=== PATIENT | female | born 1995 | race Caucasian/White ===

== ENCOUNTER → 2016-10-23 | Outpatient (CLI) | payer OTHER | LOC: MOB LAB 13:27 | PROVIDERS: ATTEND Physician Assistant | DX: Z32.01 Encounter for pregnancy test, result positive (principal) | CPT/HCPCS: 36415; 84702 ==

== ENCOUNTER → 2016-11-20 | Outpatient (CLI) | payer OTHER ==
--- NOTE | 2016-11-20 15:25 | DI ---
US OB LESS THAN 14 WEEKS,11/20/2016 1:06 PM: Clinical History: Positive test. Previous Exam: May 23, 2014 from a prior . Findings: Multiple transabdominal grayscale and color Doppler sonographic images are obtained through the pelvi s demonstrating a single intrauterine gestation. Detected Doppler heart tones measure 163 beats per minute. The crown-rump length measures 17 mm corresponding with an estimated gestational age of 8 weeks 2 day s. The right ovary measures 3.4 x 2.5 x 2.3 cm and the left ovary measures 2.8 x 1.9 x 2.1 cm. There is preserved Doppler flow within the ovaries. There is no free fluid within the cul-de-sac. Impression: A single live intrauterine gestation with estimated gestational age of 8 weeks 2 days.
== END ==
LOC: US 13:01
PROVIDERS: ATTEND Physician Assistant
DX: Z36 Encounter for antenatal screening of mother (principal)
CPT/HCPCS: 76801

== ENCOUNTER → 2016-12-03 | Outpatient (CLI) | payer OTHER ==
[2016-12-03 15:40] LABS: BASOPHILS # (AUTO) 0.01 10*3/UL; BASOPHILS % (AUTO) 0.2 % (0-1); EOSINOPHILS # (AUTO) 0.02 10*3/UL; EOSINOPHILS % (AUTO) 0.3 % (0-8); HEMATOCRIT 36.8 % (37.0-47.0); HEMOGLOBIN 12.8 g/dL (12.0-16.0); LYMPHOCYTES # (AUTO) 1.65 10*3/uL; MEAN CORPUSCULAR HEMOGLOBIN 30.1 PG (27-31); MEAN CORPUSCULAR HGB CONC 34.8 g/dL (33-37); MEAN CORPUSCULAR VOLUME 86.6 FL (81-99); MEAN PLATELET VOLUME 10.4 FL (7.4-12.2); MONOCYTES # (AUTO) 0.46 10*3/UL (0.3-0.8); MONOCYTES % (AUTO) 7.6 % (5-15); NEUTROPHILS # (AUTO) 3.91 10*3/UL; NEUTROPHILS % (AUTO) 64.5 % (50-80); RED BLOOD COUNT 4.25 10^6/uL (4.20-5.40)
[2016-12-03 15:42] LABS: PLATELET MORPHOLOGY COMMENT NORMAL MORPHOLOGY (NORM); RBC MORPHOLOGY COMMENT NORMAL MORPHOLOGY (NORM); WBC MORPHOLOGY COMMENT NORMAL MORPHOLOGY (NORM)
[2016-12-03 15:51] LABS: AMPHETAMINE SCREEN NEGATIVE (NEG); CANNABINOID SCREEN,URINE NEGATIVE (NEG); COCAINE SCREEN NEGATIVE (NEG); METHADONE URINE SCREEN NEGATIVE (NEG); METHAMPHETAMINES SCREEN,URINE NEGATIVE (NEG); OPIATE SCREEN,URINE NEGATIVE (NEG); TRICYCLIC ANTIDEPRESSANT,URINE NEGATIVE (NEG); URINE SAMPLE TYPE VOIDED SPECIMEN; URINE SPECIFIC GRAVITY - MAN 1.027
[2016-12-03 16:19] LABS: HIV ANTIBODY NEGATIVE (N); HIV-1 P24 ANTIGEN NEGATIVE (N)
== END ==
LOC: MOB LAB 13:38
PROVIDERS: ATTEND Family Medicine
DX: Z36 Encounter for antenatal screening of mother (principal); Z87.898 Personal history of other specified conditions; Z3A.10 10 weeks gestation of pregnancy
CPT/HCPCS: 36415; 80081; 80305; 86900; 86901; 87088

== ENCOUNTER 2017-06-15 15:24 | Inpatient (IN) ==
[2017-06-15] MEDS ORDERED: LIDOCAINE W/ SODIUM BICARB 0.5 ML SYR SUBD PRN ×2 (15:52→20:02)
[2017-06-15] MEDS ORDERED: NORMAL SALINE 10 ML SYRINGE FLUSH IVP PRN (15:52)
[2017-06-15 16:23] VITALS: O2SAT 98
[2017-06-15 16:25] LABS: AMPHETAMINE SCREEN NEGATIVE (NEG); CANNABINOID SCREEN,URINE NEGATIVE (NEG); COCAINE SCREEN NEGATIVE (NEG); METHADONE URINE SCREEN NEGATIVE (NEG); METHAMPHETAMINES SCREEN,URINE NEGATIVE (NEG); OPIATE SCREEN,URINE NEGATIVE (NEG); TRICYCLIC ANTIDEPRESSANT,URINE NEGATIVE (NEG); URINE SAMPLE TYPE CLEAN CATCH URINE; URINE SPECIFIC GRAVITY - MAN 1.016
[2017-06-15] MEDS ORDERED: BUTORPHANOL TARTRATE 2 MG/1 ML VIAL IVP PRN (20:02)
[2017-06-15] MEDS ORDERED: CALCIUM CARBONATE 500 MG (TUMS) CHEWABLE TABLET PO PRN (20:02)
[2017-06-15] MEDS ORDERED: Nalbuphine Inj 20 MG/ML Ampule IVP PRN (20:02)
[2017-06-15] MEDS ORDERED: Phenylephrine Inj 50 MCG in Normal Saline Flush 0.5 ML IVP PRN (20:02)
[2017-06-15] MEDS ORDERED: Carboprost Inj 250 MCG/ML AMP IM PRN (20:02)
[2017-06-15] MEDS ORDERED: ePHEDrine Inj 5 MG in Normal Saline Flush 1 ML IVP PRN (20:02)
[2017-06-15] MEDS ORDERED: Famotidine Inj 20 MG in Normal Saline Flush 10 ML IVP PRN ×4 (20:02)
[2017-06-15] MEDS ORDERED: fentaNYL Inj 100 MCG/2 ML VIAL IV PRN (20:02)
[2017-06-15] MEDS ORDERED: LIDOCAINE HCL 2 % 10 ML JELLY URO-JECT TOPICAL PRN (20:02)
[2017-06-15] MEDS ORDERED: METHYLERGONOVINE MALEATE 0.2 MG/1 ML VIAL IM PRN (20:02)
[2017-06-15] MEDS ORDERED: MISOPROSTOL 200 MCG TABLET RECTAL PRN (20:02)
[2017-06-15] MEDS ORDERED: ONDANSETRON 4 MG/2 ML VIAL IVP PRN (20:02)
[2017-06-15] MEDS ORDERED: diphenhydrAMINE 50 MG/1 ML VIAL IVP PRN (20:02)
[2017-06-15] MEDS ORDERED: Naloxone Inj 0.01 MG in Normal Saline Flush 1 ML IVP PRN (20:02)
[2017-06-15] MEDS ORDERED: TERBUTALINE SULFATE 1 MG/1 ML SDV SUBCUT PRN (20:02)
[2017-06-15] MEDS ORDERED: Metoclopramide Inj 10 MG/2 ML VIAL IV PRN (20:02)
[2017-06-15] MEDS ORDERED: NALOXONE 0.4 MG/1 ML VIAL IVP PRN (20:02)
[2017-06-15] MEDS ORDERED: OXYTOCIN 10 UNIT/1 ML IM PRN (20:02)
[2017-06-15] MEDS ORDERED: CITRIC ACID/SODIUM CITRATE 30 ML CUP PO PRN (20:02)
[2017-06-15] MEDS ORDERED: Lidocaine 1% 10 MG/ML - 20 ML VIAL SUBCUT PRN (20:02)
[2017-06-15] MEDS ORDERED: CefOXitin Inj 2 GM in Sodium Chloride 0.9% 100 ML IV PRN (20:02)
[2017-06-15] MEDS ORDERED: Lactated Ringers-OB Dept 1,000 ML PRIMARY IV SCH (20:15)
[2017-06-15] MEDS ORDERED: Oxytocin 20 Units + LR 20 UNIT/1,000 ML BAG IV SCH (20:15)
[2017-06-15 20:22] LABS: Hematocrit [HCT] 33.9 % (37.0-47.0); Hemoglobin [HGB] 11.3 g/dL (12.0-16.0); MEAN CORPUSCULAR HEMOGLOBIN 30.4 PG (27-31); MEAN CORPUSCULAR HGB CONC 33.3 g/dL (33-37); MEAN CORPUSCULAR VOLUME 91.1 FL (81-99); MEAN PLATELET VOLUME 10.9 FL (7.4-12.2); RED BLOOD COUNT 3.72 10^6/uL (4.20-5.40)
[2017-06-15 21:12] VITALS: RESP 16
[2017-06-16 02:15] VITALS: BP 103/54
[2017-06-16 13:11] VITALS: TEMP 97.8
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
--- NOTE | 2017-06-16 20:36 | DI ---
LIMITED OBSTETRICAL ULTRASOUND, 06/16/2017 2:44 PM Clinical History: IUGR. Previous Exam: 06/10/2017. EDC based on early OB US: 06/30/2017. There is a single live IUP currently in vertex presentation. Amnionic fluid content is at the upper l imits of normal for this stage of . SCOTT is 14.7 cm. activity is observed as follows: c ardiac and extremity. The placenta is anterior corpus and Grade grade 2. heart rate varies betw een 124-164 beats/minute over a time span of 11 minutes and is regular. Cord Doppler ultrasound shows diastolic flow. Systolic/diastolic ratios are 2.7, 2.5, 3.0, 1.9, and 2.3. BPD, HC, AC, and FL measu rements are 89 mm, 325 mm, 312 mm, and 70 mm, respectively. These measurements correspond to EGA valu es of 31 weeks 1 day, 36 weeks 6 days, 35 weeks 1 day, and 36 weeks 0 days, respectively. Composite E GA is 36 weeks 1 day. The US EDC is 07/13/2017, and has not changed since the previous exam. EDC based on early OB US is 06/30/2017. AC measurement is in the 5th percentile, and the HC and FL measurements are in the 9th percentile, and the BPD measurement is in the 20th percentile. LMP percentile is 11%. Estimated weight is 2722 g, plus or minus 397 g. The weight on the study from 06/10/2017 w as 2527 g, plus or minus 369 g. Readin. Single live fetus with vertex presentation. Amniotic fluid content is at the upper limits of norm al for this stage of . SCOTT is 14.7 cm. The center is anterior corpus and grade 2. 2. Cord Doppler ultrasound is normal. 3. The composite EGA is 36 weeks 1 day with an ultrasound EDC of 07/13/2017, and this is unchanged fr om the previous study. The EDC based on the early OB ultrasound is 06/30/2017. 4. LMP percentile is 11%. Estimated weight is 2722 g, plus or minus 397 g.
== END 2017-06-16 18:05 | disposition home or self-care (01) | DRG 782 ==
LOC: OBOP 15:24 → OBIP 19:30
PROVIDERS: ADMIT Family Medicine; ATTEND Family Medicine

== ENCOUNTER 2017-06-18 12:11 | Inpatient (IN) ==
[2017-06-18] MEDS ORDERED: NORMAL SALINE 10 ML SYRINGE FLUSH IVP PRN ×3 (13:20→21:12)
[2017-06-18] MEDS ORDERED: LIDOCAINE W/ SODIUM BICARB 0.5 ML SYR SUBD PRN ×2 (13:20→14:02)
[2017-06-18 13:40] LABS: AMPHETAMINE SCREEN NEGATIVE (NEG); CANNABINOID SCREEN,URINE NEGATIVE (NEG); COCAINE SCREEN NEGATIVE (NEG); METHADONE URINE SCREEN NEGATIVE (NEG); METHAMPHETAMINES SCREEN,URINE NEGATIVE (NEG); OPIATE SCREEN,URINE NEGATIVE (NEG); TRICYCLIC ANTIDEPRESSANT,URINE NEGATIVE (NEG); URINE SAMPLE TYPE CLEAN CATCH URINE; URINE SPECIFIC GRAVITY - MAN 1.015
[2017-06-18] MEDS ORDERED: METHYLERGONOVINE MALEATE 0.2 MG/1 ML VIAL IM PRN (14:02)
[2017-06-18] MEDS ORDERED: Naloxone Inj 0.01 MG in Normal Saline Flush 1 ML IVP PRN ×2 (14:02→16:32)
[2017-06-18] MEDS ORDERED: diphenhydrAMINE 50 MG/1 ML VIAL IVP PRN ×3 (14:02→21:12)
[2017-06-18] MEDS ORDERED: ePHEDrine Inj 5 MG in Normal Saline Flush 1 ML IVP PRN ×2 (14:02→16:32)
[2017-06-18] MEDS ORDERED: CALCIUM CARBONATE 500 MG (TUMS) CHEWABLE TABLET PO PRN ×2 (14:02→21:12)
[2017-06-18] MEDS ORDERED: MISOPROSTOL 200 MCG TABLET RECTAL PRN (14:02)
[2017-06-18] MEDS ORDERED: CITRIC ACID/SODIUM CITRATE 30 ML CUP PO PRN (14:02)
[2017-06-18] MEDS ORDERED: Famotidine Inj 20 MG in Normal Saline Flush 10 ML IVP PRN ×4 (14:02)
[2017-06-18] MEDS ORDERED: ONDANSETRON 4 MG/2 ML VIAL IVP PRN ×2 (14:02→21:12)
[2017-06-18] MEDS ORDERED: NALOXONE 0.4 MG/1 ML VIAL IVP PRN ×2 (14:02→16:32)
[2017-06-18] MEDS ORDERED: Phenylephrine Inj 50 MCG in Normal Saline Flush 0.5 ML IVP PRN ×2 (14:02→16:32)
[2017-06-18] MEDS ORDERED: Metoclopramide Inj 10 MG/2 ML VIAL IV PRN (14:02)
[2017-06-18] MEDS ORDERED: fentaNYL Inj 100 MCG/2 ML VIAL IV PRN (14:02)
[2017-06-18] MEDS ORDERED: OXYTOCIN 10 UNIT/1 ML IM PRN (14:02)
[2017-06-18] MEDS ORDERED: BUTORPHANOL TARTRATE 2 MG/1 ML VIAL IVP PRN ×2 (14:02→16:32)
[2017-06-18] MEDS ORDERED: CefOXitin Inj 2 GM in Sodium Chloride 0.9% 100 ML IV PRN (14:02)
[2017-06-18] MEDS ORDERED: Carboprost Inj 250 MCG/ML AMP IM PRN (14:02)
[2017-06-18] MEDS ORDERED: Nalbuphine Inj 20 MG/ML Ampule IVP PRN ×3 (14:02→21:12)
[2017-06-18] MEDS ORDERED: TERBUTALINE SULFATE 1 MG/1 ML SDV SUBCUT PRN (14:02)
[2017-06-18] MEDS ORDERED: Lidocaine 1% 10 MG/ML - 20 ML VIAL SUBCUT PRN (14:02)
[2017-06-18] MEDS ORDERED: LIDOCAINE HCL 2 % 10 ML JELLY URO-JECT TOPICAL PRN ×2 (14:02→21:12)
[2017-06-18] MEDS ORDERED: Oxytocin 20 Units + LR 20 UNIT/1,000 ML BAG IV SCH ×2 (14:15→21:12)
[2017-06-18] MEDS: Lactated Ringers-OB Dept 1,000 ML PRIMARY IV SCH ×2 (14:43→15:45)
[2017-06-18 14:53] LABS: Hematocrit [HCT] 33.6 % (37.0-47.0); Hemoglobin [HGB] 11.1 g/dL (12.0-16.0); MEAN CORPUSCULAR HEMOGLOBIN 30.2 PG (27-31); MEAN CORPUSCULAR VOLUME 91.3 FL (81-99); MEAN PLATELET VOLUME 10.2 FL (7.4-12.2); RED BLOOD COUNT 3.68 10^6/uL (4.20-5.40)
[2017-06-18] MEDS ORDERED: Fent/Bupiv 2mcg/0.0625% Epid 250 ML ONE (15:42)
[2017-06-18] MEDS ORDERED: fentaNYL Inj 100 MCG/2 ML VIAL ONE (15:42)
--- NOTE | 2017-06-18 16:28 | CRNA.PROGR ---
Anesthesia Time - - Start date: 06/18/17 - Procedure/Recovery Time Anesthesia : Time In: 15:39 - Other Weight: 47.627 kg Height: 5 ft Body Mass Index (BMI): 20.5 Physical Status: P2 ( , smoker) Anesthesia Type: Epidural Obstetrics: Planned vaginal delivery w/ neuraxial labor anesthesia/analog
--- NOTE | 2017-06-18 16:31 | CRNA.PROCE ---
Central Neuraxis Block Placetx - - Safety Measures: Site Verified - - Type of Block: Epidural Reason for Block: Analgesia Moniters Used During Block: SPO2, NIBP Sedation Used - Enter Amount Used in Comment Field: Fentanyl (mcg): Yes (50 mcgs iv at 1543) Positioning: Sitting Skin Prep Used: ChloroPrep Draped: Yes Skin Infiltration - Enter Amount Used in Comment Field: 1% Xylocaine (mL): Yes ( 1.2 ml) Introducer User: 18 Gauge [place] Spinal Needle Used: 18 HusMlog 80 mm Local Anesthetic - Enter Amount Used in Comment Field: 1.5 % Xylocaine with Epinephrine 1:200,000 (mL): Yes (4 ml as test dose) Number of Centimeters Catheter Threaded: 3.2 (Extremely anxious re: potential pain.) Bioclusive Dressing Applied: Yes (skin prep under all adhesive) Anesthesia Time - Other Weight: 47.627 kg Height: 5 ft Body Mass Index (BMI): 20.5
[2017-06-18] MEDS ORDERED: fentaNYL 2 MCG/BUPIVACAINE 0.0625%/NS 0.9% 250 ML BAG EPIDURAL ONE (16:32)
[2017-06-18] MEDS ORDERED: LIDOCAINE MPF 2% - 5 ML (20 MG/1 ML) ONE (16:45)
--- NOTE | 2017-06-18 17:35 | OB.PROGRES ---
Date and Time of Service: 06/18/17 @ 1400 Interval History: Pt is a 21 yo at 38 2/7 weeks by first trimester u/s who presented to the office today for routine f/u. She is continuing to complain of decreased movement and persistent contractions. Because she lives 50 miles away and has been in early labor for several days with a baby that shows evidence of IUGR per u/s last week, the pt was admitted for labor augmentation. She had amniotomy with clear fluid at 1500. She requested and had an epidural placed for analgesia at 1530. She is currently comfortable. Objective - Cervical Exam Cervical Exam: /-1 per RN at 1630. [place]: every 2-3 minutes, palpating hard. Heart Rate: 130s-140s, moderate variability, had 2 late decels just prior to her epidural being placed but these resolved with IV fluid bolus, position change and oxygen. Heart Rate Interpretation Category: Category I - Labs CBC and BMP: 06/18/17 14:47 - Vital Signs Last Taken Vital Signs: Vital Signs - Last Taken Temperature 98.5 F 06/18/17 15:15 Pulse Rate 86 06/18/17 12:32 Respiratory Rate 20 06/18/17 12:32 Blood Pressure 118/73 06/18/17 12:32 Pulse Ox 98 06/18/17 12:32 Assessment and Plan - Patient Problems (1) Term Current Visit: Yes Status: Acute Code(s): Z34.80 - Encounter for supervision of other normal , unspecified trimester - Assessment / Plan Additional Assessment/Plan Details: GBS negative. -comfortable with epidural. -anticipate vaginal delivery.
--- NOTE | 2017-06-18 18:44 | CRNA.PROGR ---
Anesthesia Note - Progress Notes Anesthesia Progress Note: Dosed epidural with 50 mcgs of Fentanyl at 1647. Dosed Epidural with 5 ml of 2 % Lido MPF at 1647. Complete and began to push around 1805. Baby delivered soon.
[2017-06-18] MEDS ORDERED: BENZOCAINE/MENTHOL SPRAY 56 GM BOTTLE TOPICAL PRN (21:12)
[2017-06-18] MEDS ORDERED: LANOLIN HPA 40 GM TUBE TOPICAL PRN (21:12)
[2017-06-18] MEDS ORDERED: GLYCERIN/WITCH HAZEL 1 BOX TOPICAL PRN (21:12)
[2017-06-18] MEDS ORDERED: METHYLERGONOVINE MALEATE 0.2 MG/1 ML VIAL IM ONE (21:12)
[2017-06-18] MEDS ORDERED: Ondansetron ODT Tab 4 MG TAB PO PRN (21:12)
[2017-06-18] MEDS ORDERED: diphenhydrAMINE 25 MG CAPSULE PO PRN (21:12)
[2017-06-18] MEDS ORDERED: DIPH,PERTUSS,TET(ADACEL) VAC/PF 0.5 ML (Tdap) IM ONE (21:12)
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
[2017-06-18] MEDS ORDERED: Lactated Ringers 1,000 ML PRIMARY IV ONE (22:05)
[2017-06-19] MEDS: IBUPROFEN 800 MG TABLET PO PRN ×3 (00:42→17:03)
[2017-06-19] MEDS: DOCUSATE 100 MG CAPSULE PO SCH ×3 (00:45→21:43)
[2017-06-19] MEDS: Prenatal Multivitamin Tab 1 TAB TAB PO SCH ×2 (09:02→09:04)
[2017-06-19] MEDS ORDERED: ACETAMINOPHEN 500 MG TABLET PO ONE (09:41)
[2017-06-19] MEDS: ACETAMINOPHEN 325 MG TABLET PO PRN ×4 (09:45→21:42)
[2017-06-19] MEDS: Lactated Ringers-OB Dept 1,000 ML PRIMARY IV SCH ×3 (10:05→15:47)
[2017-06-19 10:06] LABS: Hematocrit [HCT] 33.4 % (37.0-47.0); Hemoglobin [HGB] 11.1 g/dL (12.0-16.0); MEAN CORPUSCULAR HEMOGLOBIN 30.4 PG (27-31); MEAN CORPUSCULAR HGB CONC 33.2 g/dL (33-37); MEAN CORPUSCULAR VOLUME 91.5 FL (81-99); MEAN PLATELET VOLUME 9.9 FL (7.4-12.2); RED BLOOD COUNT 3.65 10^6/uL (4.20-5.40)
[2017-06-19 10:19] LABS: BLOOD UREA NITROGEN 5 mg/dL (7-22); SERUM ALBUMIN 3.3 g/dL (3.5-4.8)
[2017-06-19] MEDS: DICYCLOMINE 20 MG TABLET PO SCH ×4 (11:05→21:43)
[2017-06-19 17:02] VITALS: RESP 16
[2017-06-19] MEDS: HYDROcodone-APAP 5 MG -325 MG TABLET PO PRN ×2 (21:48→23:34)
--- NOTE | 2017-06-19 23:40 | OB.PROGRES ---
Subjective Post Op Day: 1 Pain Management: PO Carrero Catheter: No Flatus: Yes Diet: Regular Feeding Method: / Bottle Ambulating: Yes Concerns / Additional Information: C/o significant lower abdominal cramping that started this morning. States that it feels like her normal IBS cramping, only worse. Has just taken a motrin, wants to also try a regular strength tylenol. Minimal lochia. Baby is breast feeding well. Hasn't really eaten anything since her delivery last noc. Objective - General General Appearance: POSITIVE: Thin Other General Details: moderate distress secondary to lower abdominal pain - Cardiovacular Cardiovascular Exam: POSITIVE: RRR, No Murmur, No Clicks, No Gallops - Respiratory Respiratory Exam: POSITIVE: Clear to Auscultation - Bilaterally, Breathing Non Labored - Abdomen Bowel Sounds: Present Other Abdominal Exam Details: tender to palpation in the RLQ and LLQ as well as in suprapubic area. Assesstment / Plan (1) Term Current Visit: Yes Status: Acute Assessment / Plan: -routine cares. -check labs this morning and if her WBC is high, will get CT scan of abd and pelvis. -breast and bottle feeding. -rh positive. -rubella immune. -likely d/c home tomorrow.
[2017-06-20] MEDS: IBUPROFEN 800 MG TABLET PO PRN ×2 (01:14→09:28)
[2017-06-20] MEDS: ACETAMINOPHEN 325 MG TABLET PO PRN (04:42)
[2017-06-20 04:54] VITALS: O2SAT 98
[2017-06-20 07:57] VITALS: BP 113/72
[2017-06-20] MEDS: DICYCLOMINE 20 MG TABLET PO SCH (09:27)
[2017-06-20] MEDS: Prenatal Multivitamin Tab 1 TAB TAB PO SCH (09:29)
[2017-06-20] MEDS: DOCUSATE 100 MG CAPSULE PO SCH (09:29)
[2017-06-20 09:31] VITALS: TEMP 98.2
--- NOTE | 2017-06-20 10:20 | OB.PROGRES ---
Subjective Post Op Day: 2 Pain Management: PO Carrero Catheter: No Flatus: Yes Diet: Regular Feeding Method: / Bottle Ambulating: Yes Concerns / Additional Information: Feeling much better today. Abd pain is gone. She thinks that the bentyl is helping some with her cramping that she experienced yesterday. Scant vag bleeding. Baby is breast and bottle feeding. No concerns per mom Objective - General General Appearance: POSITIVE: No Acute Distress, Cooperative - Cardiovacular Cardiovascular Exam: POSITIVE: RRR, No Murmur Edema: +1 Pedal Edema Extremities: Negative Job's - Bilaterally - Respiratory Respiratory Exam: POSITIVE: Clear to Auscultation - Bilaterally, Breathing Non Labored - Reflexes Clonus (indicate extremity in comment field): Absent - Abdomen Bowel Sounds: Present Assesstment / Plan (1) Term Current Visit: Yes Status: Acute Assessment / Plan: -routine cares. -breast/bottle feeding. -rh positive. -rubella immune. -will continue bentyl at discharge for pt's h/o IBS and cramping that she had yesterday. -ok to d/c home today.
== END 2017-06-20 11:45 | disposition home or self-care (01) | DRG 775 ==
LOC: OBOP 12:11 → OBIP 14:02 → MED/SURG 06-19 11:48 → OBIP 06-19 12:03
PROVIDERS: ADMIT Family Medicine; ATTEND Family Medicine